=== PATIENT | female | born 1975 | race American Indian/Alaskan Native ===

== ENCOUNTER 2018-11-28 18:59 | Emergency (ER) | payer SELFPAY ==
[2018-11-28 19:04] VITALS: BP 117/77
[2018-11-28] MEDS ORDERED: LIDOCAINE VISCOUS 2% PO ONE (22:03)
[2018-11-28] MEDS ORDERED: IBUPROFEN PO ONE (22:03)
--- NOTE | 2018-11-28 22:07 | Emergency Department Report ---
HPI - General Chief Complaint: Sore Throat Time Seen by Provider: 11/28/18 21:58 - [facility] HPI: Pro 22 The patient is a 43-year-old female presenting with a chief complaint of sore throat. She states she developed pain on the right side of her throat yest erday. Patient states the pain increased this morning. The patient states she's had a nonproductive cough since last night. Patient admits to odynophagia but denies fever or shortness of breath Location: [See above] Duration: [See above] Quality: [See above] Severity: [See above] Modifying factors: [see above] Context: [see above] Mode of transportation: [not driving] ED Past Medical Hx - Past Medical History Previous Medical History?: No - Surgical History Past Surgical History?: Yes Additional Surgical History: right knee - Family History Family history: no significant - Social History Smoking Status: Former Smoker (none 2 years) Substance Use Type: None (denies illicit drug use), Alcohol (occasional) - Medications Home Medications: Home Medications Medication Instructions Recorded Confirmed Last Taken Type Amoxicillin [Trimox CAP] 500 mg PO BID #14 capsule 11/28/18 Unknown Rx Ibuprofen [Motrin 800 MG tab] 800 mg PO Q8HR PRN #20 tablet 11/28/18 Unknown Rx ED Review of Systems ROS: Stated complaint: THROAT PAIN/CARTAGENA Other details as noted in HPI Constitutional: denies: fever Eyes: denies: eye pain ENT: throat pain Respiratory: denies: shortness of breath Cardiovascular: denies: chest pain Endocrine: no symptoms reported Gastrointestinal: denies: abdominal pain Genitourinary: denies: dysuria Musculoskeletal: denies: back pain Neurological: denies: headache Physical Exam - Physical Exam Vital Signs: Vital Signs 11/28/18 19:03 Temperature 99 F Pulse Rate 86 Respiratory 17 Rate Blood Pressure 117/77 [Right] O2 Sat by Pulse 100 Oximetry Physical Exam: GENERAL: The patient is well-developed well-nourished female lying on stretcher not appearing to be in acute distress. [] HEENT: Normocephalic. Atraumatic. Extraocular motions are intact. Uvula midline, no exudate seen. NECK: Supple. No stridor. No cervical lymphadenopathy appreciated CHEST/LUNGS: Clear to auscultation. There is no respiratory distress noted. HEART/CARDIOVASCULAR: Regular. There is no tachycardia. There is no gallop rub or murmur. ABDOMEN: Abdomen is soft, nontender. Patient has normal bowel sounds. There is no abdominal distention. SKIN: There is no rash. There is no diaphoresis. NEURO: The patient is awake, alert, and oriented. The patient is cooperative. The patient has normal speech MUSCULOSKELETAL: There is no evidence of acute injury. ED Course Vital Signs 11/28/18 19:03 Temperature 99 F Pulse Rate 86 Respiratory 17 Rate Blood Pressure 117/77 [Right] O2 Sat by Pulse 100 Oximetry ED Medical Decision Making - Differential Diagnosis pharyngitis Critical care attestation.: If time is entered above; I have spent that time in minutes in the direct care of this critically ill patient, excluding procedure time. ED Disposition Clinical Impression: Sore throat Disposition: DC-01 TO HOME OR SELFCARE Is pt being admited?: No Does the pt Need Aspirin: No Condition: Stable Instructions: Pharyngitis (ED) Additional Instructions: Return to the emergency department immediately should you develop worsening symptoms, fever, inability to tolerate food or liquid or any other concerns. Prescriptions: Ibuprofen [Motrin 800 MG tab] 800 mg PO Q8HR PRN #20 tablet PRN Reason: Pain , Severe (7-10) Amoxicillin [Trimox CAP] 500 mg PO BID #14 capsule Referrals: JELLY PLEITEZ MD [Staff Physician] - 3-5 Days Time of Disposition: 22:07
== END 2018-11-28 22:35 | disposition home or self-care (01) ==
LOC: ED 18:59
DX: J02.9 Acute pharyngitis, unspecified (principal); Z98.890 Other specified postprocedural states; Z87.891 Personal history of nicotine dependence; Z79.2 Long term (current) use of antibiotics; Z79.1 Long term (current) use of non-steroidal anti-inflammatories (NSAID)

== ENCOUNTER 2019-08-28 10:14 | Emergency (ER) | payer SELFPAY ==
[2019-08-28 10:32] VITALS: BP 117/65
[2019-08-28] MEDS ORDERED: IBUPROFEN 800 MG TAB PO ONE (11:11)
--- NOTE | 2019-08-28 11:13 | Emergency Department Report ---
ED Lower Extremity HPI - General Chief Complaint: Extremity Injury, Lower Stated Complaint: RT FOOT/POSS BROKEN TOE Time Seen by Provider: 08/28/19 10:48 Source: patient Mode of arrival: Wheelchair Limitations: No Limitations - History of Present Illness Initial Comments: 44 yo comes to er with 4rth r toe pain after stubbing it on the corner of kitchen cabinet ambulatory with a limp no bleeding - Related Data Previous Rx's Medication Instructions Recorded Last Taken Type Ibuprofen [Motrin] 800 mg PO Q8HR PRN #30 tablet 08/28/19 Unknown Rx Allergies Allergy/AdvReac Type Severity Reaction Status Date / Time No Known Allergies Allergy Unverified 11/28/18 19:01 ED Review of Systems ROS: Stated complaint: RT FOOT/POSS BROKEN TOE Other details as noted in HPI Comment: All other systems reviewed and negative ED Past Medical Hx - Past Medical History Previous Medical History?: No - Surgical History Past Surgical History?: Yes Additional Surgical History: right knee - Family History Family history: no significant - Social History Smoking Status: Never Smoker Substance Use Type: None - Medications Home Medications: Home Medications Medication Instructions Recorded Confirmed Last Taken Type Ibuprofen [Motrin] 800 mg PO Q8HR PRN #30 tablet 08/28/19 Unknown Rx ED Physical Exam - General Limitations: No Limitations General appearance: alert, in no apparent distress - Head Head exam: Present: atraumatic, normocephalic - Eye Eye exam: Present: normal appearance - ENT ENT exam: Present: mucous membranes moist - Neck Neck exam: Present: normal inspection - Respiratory Respiratory exam: Present: normal lung sounds bilaterally. Absent: respiratory distress - Cardiovascular Cardiovascular Exam: Present: regular rate, normal rhythm. Absent: systolic murmur, diastolic murmur, rubs, gallop - GI/Abdominal GI/Abdominal exam: Present: soft, normal bowel sounds - Extremities Exam Extremities exam: Present: normal inspection - Back Exam Back exam: Present: normal inspection - Neurological Exam Neurological exam: Present: alert, oriented X3 - Psychiatric Psychiatric exam: Present: normal affect, normal mood - Skin Skin exam: Present: warm, dry, intact, normal color. Absent: rash ED Course Vital Signs 08/28/19 10:30 Temperature 98.7 F Pulse Rate 85 Respiratory 16 Rate Blood Pressure 117/65 O2 Sat by Pulse 100 Oximetry ED Lower Extremity MDM - Radiology Data Radiology results: report reviewed, image reviewed interpreted by me: fx - Medical Decision Making Vital Signs 08/28/19 10:30 Temperature 98.7 F Pulse Rate 85 Respiratory 16 Rate Blood Pressure 117/65 O2 Sat by Pulse 100 Oximetry xray noted ortho shoe - crutches motrin for pain dc home with ortho follow up. - Differential Diagnosis ro fx Critical care attestation.: If time is entered above; I have spent that time in minutes in the direct care of this critically ill patient, excluding procedure time. ED Disposition Clinical Impression: Fractured toe Disposition: DC-01 TO HOME OR SELFCARE Is pt being admited?: No Does the pt Need Aspirin: No Condition: Stable Instructions: Toe Fracture (ED) Additional Instructions: crutches for comfort ortho shoe ice rest elevate motrin for pain follow up Dr Nova referral below Prescriptions: Ibuprofen [Motrin] 800 mg PO Q8HR PRN #30 tablet PRN Reason: Pain, Moderate (4-6) Referrals: CATHY NOVA MD [Staff Physician] - 3-5 Days Time of Disposition: 11:11
--- NOTE | 2019-08-28 11:17 | XRay Report ---
RIGHT FOOT 2 VIEWS INDICATION / CLINICAL INFORMATION: pain 4rth toe. COMPARISON: None available. FINDINGS: Mildly displaced spiral fracture of the proximal phalanx of the fourth toe. No other significant skel etal abnormality Signer Name: Audie Monique MD FACR Signed: 08/28/2019 11:13 AM Workstation Name: [id number]
== END 2019-08-28 11:30 | disposition home or self-care (01) ==
LOC: ED 10:14
DX: M84.477A Pathological fracture, right toe(s), initial encounter for fracture (principal); Z79.1 Long term (current) use of non-steroidal anti-inflammatories (NSAID); W18.40XA Slipping, tripping and stumbling without falling, unspecified, initial encounter; Y93.89 Activity, other specified; Y92.090 Kitchen in other non-institutional residence as the place of occurrence of the external cause; Y99.8 Other external cause status
CPT/HCPCS: 99283

== ENCOUNTER 2020-06-23 12:23 | Emergency (ER) | payer OTHER ==
[2020-06-23 12:50] VITALS: BP 139/74
[2020-06-23] MEDS ORDERED: ONDANSETRON 4 MG/2 ML INJ IV ONE (13:25)
[2020-06-23] MEDS ORDERED: FAMOTIDINE 20 MG/2 ML INJ IV ONE (13:25)
[2020-06-23] MEDS ORDERED: SODIUM CHLORIDE 0.9% 1000 ML 1,000 ML IV ONE (13:25)
[2020-06-23] MEDS ORDERED: DICYCLOMINE 20 MG/2 ML INJ IM ONE (13:25)
--- NOTE | 2020-06-23 13:40 | Emergency Department Report ---
ED N/V/D HPI - General Chief complaint: Nausea/Vomiting/Diarrhea Stated complaint: VOMIT/DIZZY/DEHYDRATED Time Seen by Provider: 06/23/20 13:25 Source: patient Mode of arrival: Ambulatory Limitations: No Limitations - History of Present Illness Initial comments: 45 y/o female comes in c/o n/v/d since last night. Think she may have food poison. Has abd cramping. Denies any hematuria, hematochezia or hematemesis. LMP 06/04/2020. Denies any ETOH constumption. Reports just feels weak and dizziness. Patient denies any past medical history reports she does not take any medications on a daily basis and has no known drug allergies. MD complaint: nausea, vomiting, diarrhea, abdominal pain -: Last night Description of Vomiting: bilious Description of Diarrhea: water Associated Abdominal Pain: Yes (cramping ) Location: [facility] Radiation: none Severity: moderate Pain Scale: 6 Quality: cramping Consistency: constant Improves with: none Worsens with: none Context: possible food poisoning Associated Symptoms: nausea/vomiting, weakness. denies: chest pain, fever/chil ls, headaches, dysuria - Related Data Previous Rx's Medication Instructions Recorded Last Taken Type Ibuprofen [Motrin] 800 mg PO Q8HR PRN #30 tablet 08/28/19 Unknown Rx Ondansetron [Zofran Odt] 4 mg PO Q8HR #12 tab.rapdis 06/23/20 Unknown Rx Allergies Allergy/AdvReac Type Severity Reaction Status Date / Time No Known Allergies Allergy Unverified 11/28/18 19:01 ED Review of Systems ROS: Stated complaint: VOMIT/DIZZY/DEHYDRATED Other details as noted in HPI Comment: All other systems reviewed and negative ED Past Medical Hx - Past Medical History Previous Medical History?: No - Surgical History Past Surgical History?: Yes Additional Surgical History: right knee - Social History Smoking Status: Never Smoker Substance Use Type: Alcohol - Medications Home Medications: Home Medications Medication Instructions Recorded Confirmed Last Taken Type Ibuprofen [Motrin] 800 mg PO Q8HR PRN #30 tablet 08/28/19 Unknown Rx Ondansetron [Zofran Odt] 4 mg PO Q8HR #12 tab.rapdis 06/23/20 Unknown Rx ED Physical Exam - General Limitations: No Limitations General appearance: alert, in no apparent distress - Head Head exam: Present: atraumatic, normocephalic - Eye Eye exam: Present: normal appearance - ENT ENT exam: Present: mucous membranes moist - Neck Neck exam: Present: normal inspection, full ROM - Respiratory Respiratory exam: Present: normal lung sounds bilaterally - Cardiovascular Cardiovascular Exam: Present: tachycardia - GI/Abdominal GI/Abdominal exam: Present: soft, tenderness. Absent: distended - Back Exam Back exam: Present: normal inspection, full ROM - Neurological Exam Neurological exam: Present: alert, oriented X3, normal gait - Psychiatric Psychiatric exam: Present: normal affect, normal mood - Skin Skin exam: Present: warm, dry, intact, normal color. Absent: rash ED Course Vital Signs 06/23/20 12:49 Temperature 99.8 F H Pulse Rate 113 H Respiratory 18 Rate Blood Pressure 139/74 O2 Sat by Pulse 97 Oximetry ED Medical Decision Making - Lab Data Result diagrams: 06/23/20 13:57 06/23/20 13:57 - Medical Decision Making 45 y/o female comes in c/o n/v/d since last night. Think she may have food poison. Has abd cramping. Denies any hematuria, hematochezia or hematemesis. LMP 06/04/2020. Denies any ETOH constumption. Reports just feels weak and dizziness. Patient denies any past medical history reports she does not take any medications on a daily basis and has no known drug allergies. Labs, urine, IV fluids Zofran Pepcid and Bentyl. The patient is resting comfortably and feels better, is alert and in no distress. The repeat examination is unremarkable and benign; in particular, there is no discomfort at the McBurney's point and there is no pulsating mass. The history, exam and diagnostic testing, and current condition do not suggest an acute appendicitis, bowel obstruction, or acute cholecystitis, bowel perforation, major gastrointestinal bleeding, severe diverticulitis, abdominal aorta, mesenteric ischemia, volvulus, sepsis, or other significant pathology to warrant further testing, continued ED treatment, admission, or surgical evaluation at this point. The vital signs have been stable. The patient does not have uncomfortable pain, irretractable vomiting, or other significant symptoms. The patient's condition is stable and appropriate for discharge from the emergency room. The patient will pursue further outpatient evaluation with the primary care physician or other designated or consulting physician as indicated in the discharge instructions. Critical care attestation.: If time is entered above; I have spent that time in minutes in the direct care of this critically ill patient, excluding procedure time. ED Disposition Clinical Impression: Gastroenteritis Disposition: DC-01 TO HOME OR SELFCARE Is pt being admited?: No Does the pt Need Aspirin: No Condition: Stable Instructions: Food Choices to Help Relieve Diarrhea, Adult, Viral Gas troenteritis, Adult, [id number] Prescriptions: Ondansetron [Zofran Odt] 4 mg PO Q8HR #12 tab.rapdis Referrals: PRIMARY MD GIGI [Primary Care Provider] - 3-5 Days LEO SHELLEY MD [Staff Physician] - 3-5 Days
[2020-06-23 13:57] LABS: Bilirubin,Urine NEG (Negative); Blood,Urine NEG (Negative); Color,Urine Yellow (Yellow); Mucus,Urine 3+ /HPF; Urobilinogen,Urine < 2.0 mg/dL (<2.0)
[2020-06-23 14:40] LABS: Basophils % (Auto) 0.4 % (0.0-1.8); Hematocrit 37.5 % (30.3-42.9); Hemoglobin 12.2 gm/dl (10.1-14.3); Lymphocytes # (Auto) 0.4 K/mm3 (1.2-5.4); Lymphocytes % (Auto) 5.8 % (13.4-35.0); Mean Corpuscular HGB Conc 33 % (30-34); Mean Corpuscular Volume 86 fl (79-97); Monocytes # (Auto) 0.4 K/mm3 (0.0-0.8); Monocytes % (Auto) 5.1 % (0.0-7.3); Platelet Count 215 K/mm3 (140-440); Red Blood Count 4.37 M/mm3 (3.65-5.03); Red Cell Distribution Width 16.6 % (13.2-15.2)
[2020-06-23 14:56] LABS: Albumin 4.2 g/dL (3.9-5); Blood Urea Nitrogen 15 mg/dL (7-17); Calcium 8.5 mg/dL (8.4-10.2); Hemolysis Index 11
[2020-06-23 15:06] LABS: Alanine Aminotransferase < 5 units/L (7-56); BUN/Creatinine Ratio 30
== END 2020-06-23 16:21 | disposition home or self-care (01) ==
LOC: ED 12:23
DX: K52.9 Noninfective gastroenteritis and colitis, unspecified (principal); Z79.1 Long term (current) use of non-steroidal anti-inflammatories (NSAID); Z79.899 Other long term (current) drug therapy
CPT/HCPCS: 36415; 80053; 81001; 83690; 85025; 96361; 96372; 96374; 96375; 99283; J0500; J2405; J7030